=== PATIENT | male | born 1995 | race African-American/Black ===

== ENCOUNTER 2017-10-27 11:12 | Emergency (ER) | payer OTHER ==
[~2017-10-27] VITALS: Ht 170.2 cm; Wt 152.0 kg
[2017-10-27 11:20] VITALS: Ht 170.2 cm; Wt 152.0 kg
[2017-10-27 12:39] LABS: BASOPHIL % 0.5 % (0-2); RED CELL DISTRIBUTION WIDTH 13.8 % (11.5-14.5)
[2017-10-27 12:42] LABS: PLATELET COUNT 567 x10^3mcL (130-400)
[2017-10-27 12:48] LABS: CALCIUM 9.4 mg/dL (8.5-10.1); CARBON DIOXIDE 26.9 mmol/L (21-32); CHLORIDE SERUM 97 mmol/L (98-107); CREATININE SERUM 1.3 mg/dL (0.7-1.3); GFR1 > 60 mL/min; GLUCOSE SERUM 92 mg/dL (74-106); POTASSIUM SERUM 3.5 mmol/L (3.5-5.1); SODIUM SERUM 137 mmol/L (136-145)
[2017-10-27 12:52] LABS: ALBUMIN 3.8 g/dL (3.4-5.0); ALKALINE PHOSPHATASE 89 U/L (46-116); ALT/SGPT 40 U/L (16-63); AMYLASE 48 U/L (25-115); AST/SGOT 29 U/L (15-37); BILIRUBIN TOTAL 0.81 mg/dL (0.20-1.00); LIPASE 95 IU/L (73-393)
[2017-10-27 13:03] LABS: TOTAL PROTEIN, SERUM 8.3 g/dL (6.4-8.2)
[2017-10-27 14:35] LABS: AMPHETAMINE QUAL UR POSITIVE (See below)
[2017-10-27 15:32] VITALS: BP 129/88
== END 2017-10-27 15:33 | disposition home or self-care (01) ==
LOC: ED 11:12
PROVIDERS: Emergency Medicine
DX: R07.89 Other chest pain (principal); F15.10 Other stimulant abuse, uncomplicated; E66.01 Morbid (severe) obesity due to excess calories; F17.210 Nicotine dependence, cigarettes, uncomplicated
CPT/HCPCS: 36415; 85378; 99406; G0480